=== PATIENT | male | born 1965 ===

== ENCOUNTER 2023-12-13 08:04 | Outpatient (CLI) | payer OTHER | END 2023-12-13 08:23 | disposition home or self-care (01) | LOC: MRI 08:04 | PROVIDERS: ATTEND Orthopaedic Surgery Sports Medicine | DX: M22.41 Chondromalacia patellae, right knee (principal); M22.42 Chondromalacia patellae, left knee | CPT/HCPCS: 73721 ==

== ENCOUNTER 2024-07-19 07:58 | Outpatient (CLI) | payer BC | END 2024-07-19 08:03 | disposition home or self-care (01) | LOC: RAD 07:58 | PROVIDERS: ATTEND Physical Medicine & Rehabilitation | DX: M54.6 Pain in thoracic spine (principal); M54.59 Other low back pain ==

== ENCOUNTER 2025-04-10 07:21 | Outpatient (CLI) | payer BC | END 2025-04-10 07:34 | disposition home or self-care (01) | LOC: MRI 07:21 | PROVIDERS: ATTEND Orthopaedic Surgery Sports Medicine | DX: M23.231 Derangement of other medial meniscus due to old tear or injury, right knee (principal); M17.11 Unilateral primary osteoarthritis, right knee; M25.461 Effusion, right knee | CPT/HCPCS: 73721 ==